=== PATIENT | female | born 1995 | race African-American/Black ===

== ENCOUNTER 2019-05-08 07:47 | Inpatient (IN) ==
[2019-05-08] MEDS ORDERED: CITRIC ACID/SODIUM CITRATE 30 ML UDCUP PO ONE (09:01)
[2019-05-08] MEDS ORDERED: FAMOTIDINE 20 MG/2 ML VIAL IV ONE (09:01)
[2019-05-08] MEDS ORDERED: ceFAZolin 2,000 MG in SYRINGE 1 EACH IV ONE (09:01)
[2019-05-08 09:16] LABS: Basophils % 0.3 % (0.0-0.8); Eosinophils # 0.1 10*3/uL (0.0-0.87); Eosinophils % 0.5 % (0.00-10.9); Hematocrit 32.4 VOL% (35.7-47.0); Hemoglobin 9.6 GM/DL (12.0-16.0); Immature Granulocytes % 0.6 %; Immature Granulocytes Absolute 0.07 #; Lymphocytes # 2.7 10*3/uL (1.4-4.0); Lymphocytes % 23.7 % (21.3-54.2); Mean Corpuscular HGB Conc 29.6 GM/DL (32-36); Monocytes % 5.5 % (1.7-12.7); Neutrophils % 69.4 % (38.7-73.9); Platelet Count 209 T/CUMM (130-400); Red Blood Count 4.63 MC/CUMM (3.8-5.5); Red Cell Distribution Width 17.7 % (9.3-17.3); White Blood Count 11.5 T/CUMM (4-12)
[2019-05-08 10:01] LABS: Platelet Estimate Normal
[2019-05-08 10:02] LABS: Anisocytosis 1+; Poikilocytosis Slight
[2019-05-08 10:03] LABS: Giant Platelets Few
[2019-05-08] MEDS ORDERED: SODIUM CHLORIDE 0.9% 100 ML IV ONE (10:39)
[2019-05-08] MEDS ORDERED: OXYTOCIN/LR 20 UNIT/1,000 ML BAG IV ONE (11:06)
[2019-05-08] MEDS ORDERED: fentaNYL 100 MCG/2 ML VIAL ONE (12:50)
[2019-05-08] MEDS ORDERED: MORPHINE 10 MG/10 ML VIAL ONE (12:50)
[2019-05-08] MEDS ORDERED: BUPIVACAINE SPINAL 0.75% 2 ML AMP SPINAL ONE (12:51)
[2019-05-08] MEDS ORDERED: ONDANSETRON 4 MG/2 ML VIAL ONE (12:51)
[2019-05-08] MEDS ORDERED: PHENYLEPHRINE 1 MG/10 ML SYRINGE IV ONE (12:51)
[2019-05-08] MEDS ORDERED: BUPIVACAINE 0.5% 50 ML VIAL ONE (12:52)
[2019-05-08 12:58] LABS: Apearance,Urine CLEAR (Clear); Bacteria,Urine Occasional /HPF (Few); Bilirubin,Urine Negative (Negative); Blood, Urine Negative (Negative); Glucose,Urine (UA) Negative (Negative); Ketones,Urine Negative (Negative); Mucus,Urine Occasional /LPF (Occasional); Nitrite,Urine Negative (Negative); Protein,Urine Negative; RBC,Urine 1 /HPF (0-4); Squamous Epithelial Cell,Urine Occasional /HPF (0-10); Urine Color Straw (Yellow); Urine Specific Gravity 1.006 (1.001-1.035); Urine Urobilinogen < 2.0 EU/DL (0.2-1.0); WBC,Urine 1 /HPF (0-6)
[2019-05-08] MEDS ORDERED: SIMETHICONE CHEW 80 MG TABLET PO PRN (16:26)
[2019-05-08] MEDS ORDERED: MAGNESIUM HYDROXIDE SUSP 30 ML UDCUP PO PRN (16:26)
[2019-05-08] MEDS ORDERED: ONDANSETRON 4 MG/2 ML VIAL IV PRN (16:26)
[2019-05-08] MEDS ORDERED: RHO(D) IMMUNE GLOBULIN 300 MCG SYRINGE IM ONE (16:26)
[2019-05-08] MEDS: KETOROLAC 30 MG/1 ML VIAL IV SCH ×2 (17:07→23:17)
[2019-05-08] MEDS: LACTATED RINGERS 1,000 ML IV SCH (18:09)
[2019-05-08] MEDS: DOCUSATE SODIUM 100 MG CAPSULE PO SCH (20:10)
[2019-05-08 21:57] LABS: Basophils % 0.3 % (0.0-0.8); Eosinophils % 0.1 % (0.00-10.9); Hematocrit 28.8 VOL% (35.7-47.0); Hemoglobin 8.6 GM/DL (12.0-16.0); Immature Granulocytes % 0.5 %; Immature Granulocytes Absolute 0.07 #; Lymphocytes # 2.2 10*3/uL (1.4-4.0); Lymphocytes % 15.5 % (21.3-54.2); Mean Corpuscular HGB Conc 29.9 GM/DL (32-36); Mean Corpuscular Volume 70.2 FL (87-102); Mean Platelet Volume 11.8 FL (9.6-12.0); Monocytes % 5.2 % (1.7-12.7); Neutrophils % 78.4 % (38.7-73.9); Platelet Count 210 T/CUMM (130-400); Red Cell Distribution Width 17.3 % (9.3-17.3); White Blood Count 13.9 T/CUMM (4-12)
[2019-05-09] MEDS: LACTATED RINGERS 1,000 ML IV SCH (00:38)
[2019-05-09] MEDS: KETOROLAC 30 MG/1 ML VIAL IV SCH (05:45)
[2019-05-09 06:04] LABS: Basophils % 0.2 % (0.0-0.8); Eosinophils # 0.1 10*3/uL (0.0-0.87); Eosinophils % 0.8 % (0.00-10.9); Hematocrit 27.1 VOL% (35.7-47.0); Immature Granulocytes % 0.6 %; Immature Granulocytes Absolute 0.07 #; Lymphocytes # 2.8 10*3/uL (1.4-4.0); Lymphocytes % 22.7 % (21.3-54.2); Mean Corpuscular HGB Conc 29.5 GM/DL (32-36); Mean Corpuscular Volume 70.8 FL (87-102); Mean Platelet Volume 11.2 FL (9.6-12.0); Monocytes % 6.1 % (1.7-12.7); Neutrophils % 69.6 % (38.7-73.9); Platelet Count 189 T/CUMM (130-400); Red Blood Count 3.83 MC/CUMM (3.8-5.5); Red Cell Distribution Width 17.4 % (9.3-17.3); White Blood Count 12.1 T/CUMM (4-12)
[2019-05-09] MEDS: DOCUSATE SODIUM 100 MG CAPSULE PO SCH ×2 (08:55→21:36)
[2019-05-09] MEDS: MULTIVITAMIN (PRENATAL) TABLET PO SCH (08:55)
[2019-05-09] MEDS ORDERED: LIDOCAINE 1% 20 ML VIAL MISC INJ ONE (12:01)
[2019-05-09] MEDS ORDERED: ETONOGESTREL 68 MG IMPLANT SUBCUT ONE (12:01)
[2019-05-09] MEDS: IBUPROFEN 800 MG TABLET PO SCH (18:01)
[2019-05-10] MEDS: IBUPROFEN 800 MG TABLET PO SCH ×4 (02:01→12:37)
[2019-05-10 07:51] VITALS: BP 121/79
[2019-05-10] MEDS: MULTIVITAMIN (PRENATAL) TABLET PO SCH (08:39)
[2019-05-10] MEDS: DOCUSATE SODIUM 100 MG CAPSULE PO SCH (08:39)
== END 2019-05-10 15:10 | disposition home or self-care (01) | DRG 540 ==
LOC: N.LDOUT 07:47 → N.LD 07:50 → N.OB 16:19
PROVIDERS: ADMIT Obstetrics & Gynecology; ATTEND Obstetrics & Gynecology
PROC: LDCSECT (ICD-10-PCS; 2019-05-08 11:45)